=== PATIENT | female | born 1980 | race Caucasian/White ===

== ENCOUNTER 2025-01-07 12:14 | Emergency (ER) | payer OTHER ==
[~2025-01-07] VITALS: Ht 180.3 cm; Wt 67.0 kg
--- NOTE | 2025-01-07 12:33 | ED.PDOC ---
SOB-HPI HPI Comments 44 year old female presents to the ED with chief complaint of SOB. Patient reports that she has had worsening SOB over the past week, calling her PCP regarding the problem. Patient relays that she was prescribed Augmentin and Prednisone, which has not provided any relief. Patient states she was then advised to come to the ED as she had associated symptoms of facial numbness, lip tingling, and eyelid swelling. Patient denies any throat swelling, dizziness, headache, N/V, chest pain, cough, or itchiness. Time Seen by MD: 12:24 Reviewed notes: Nurses Notes, Medications, Allergies Information Source: Patient Mode of Arrival: Ambulatory Severity: Moderate Timing: Hours Duration: Since onset Context: At Rest PE Risk Factors: None History of: Recent Antibiotic, Other (Prednisone) Prehospital treatment: None Modifying Factors: Nothing Associated Signs and Symptoms: None Past Medical History PAST MEDICAL HISTORY: Denies Surgical History: Denies all surgeries EMPLOYEE RELATIONS DIRECTOR History: No Pertinent EMPLOYEE RELATIONS DIRECTOR History Family History Family History: Reviewed,noncontributory to illness Social History Smoker: Non-Smoker Alcohol: Denies ETOH Use Drugs: Denies Drug Use Lives In: Home Constitutional: denies: chills, diaphoresis, fatigue, fever, malaise, sweats, weakness, others EENTM: reports: others (Eyelid swelling); denies: blurred vision, double vision, ear bleeding, ear discharge, ear drainage, ear pain, ear ringing, eye pain, eye redness, hearing loss, mouth pain, mouth swelling, nasal discharge, nose bleeding, nose congestion, nose pain, photophobia, tearing, throat pain, throat swelling, voice changes Respiratory: reports: shortness of breath; denies: cough, hemoptysis, orthopnea, SOB at rest, SOB with excertion, stridor, wheezing, others Cardiovascular: denies: chest pain, dizzy spells, diaphoresis, Dyspnea on exertion, edema, irregular heart beat, left arm pain, lightheadedness, palpitations, PND, syncope, others Gastrointestinal: denies: abdomen distended, abdominal pain, blood streaked bowels, constipated, diarrhea, dysphagia, difficulty swallowing, hematemesis, melena, nausea, poor appetite, poor fluid intake, rectal bleeding, rectal pain, vomiting, others Genitourinary: denies: abnormal vagina bleeding, burning, dyspareunia, dysuria, flank pain, frequency, hematuria, incontinence, pain, , vagina discharge, urgency, others Neurological: reports: numbness, tingling; denies: dizziness, fainting, headache, left sided numbness, left sided weakness, paresthesia, pre-existing deficit, right sided numbness, right sided weakness, seizure, speech problems, tremors, weakness, others Musculoskeletal: denies: back pain, gout, joint pain, joint swelling, muscle pain, muscle stiffness, neck pain, others Integumetry: denies: bruises, change in color, change in hair/nails, dryness, laceration, lesions, lumps, rash, wounds, others Allergic/Immunocompromised: denies: Difficulty Healing, Frequent Infections, Hives, Itching, others Hematologic/Lymphatic: denies: anemia, blood clots, easy bleeding, easy bruising, swollen glands, others Endocrine: denies: excessive hunger, excessive sweating, excessive thirst, excessive urination, flushing, intolerance to cold, intolerance to heat, unexplained weight gain, unexplained weight loss, others Psychiatric: denies: anxiety, bipolar disorder, depression, hopeless, panic disorder, schizophrenia, sleepless, suicidal, others All Other Systems: Reviewed and Negative Physical Exam General Appearance: Moderate Distress, Normal HEENT: Normal ENT Inspection, Pharynx Normal, TMs Normal Neck: Full Range of Motion, Non-Tender, Normal, Normal Inspection Respiratory: Chest Non-Tender, No Accessory Muscle Use, Other (Coarse breath sounds) Cardiovascular: No Edema, No JVD, No Murmur, No Gallop, Normal Peripheral Pulses, Regular Rate/Rhythm Breast Exam: Deferred Gastrointestinal: No Organomegaly, Non Tender, No Pulsatile Mass, Normal Bowel Sounds, Soft Genitalia: Deferred Pelvic: Deferred Rectal: Deferred Extremities: No calf tenderness, Normal capillary refill, Normal inspection, Normal range of motion, Non-tender, No pedal edema Musculoskeletal : Apperance: Normal Neurologic: Alert, application support manager II-XII nml as Tested, No Motor Deficits, Normal Affect, Normal Mood, No Sensory Deficits Cerebellar Function: Normal Reflexes: Normal Skin: Dry, Normal Color, Warm Peripheral Pulses: 3+ Radial (R), 3+ Radial (L) Lymphatic: No Adenopathy Was a procedure done? Was a procedure done?: No Differential Dx Differential Diagnosis: Anxiety, Asthma, Bronchitis, CHF, COPD X-Ray, Labs, Meds, VS Vital Signs Date Time Temp Pulse Resp B/P (MAP) Pulse Ox O2 Delivery O2 Flow Rate FiO2 01/07/25 12:30 98.1 106 16 130/76 (94) 95 98.1 Lab Test 01/07/25 13:04 Range/Units D-Dimer, Quantitative < 0.19 0.0-0.49 mg/L FEU Chest XR: FINDINGS: The cardiac silhouette is unremarkable. The lungs demonstrate bilateral patchy airspace opacities. Bilateral interstitial airspace opacities The pulmonary vasculature is prominent. There is no pleural effusion.. There is no pne umothorax. IMPRESSION: 1. Pulmonary vascular congestion and bilateral patchy airspace opacities. 2. Interstitial airspace opacities which could represent sequela of pulmonary edema, atypical infection, chronic lung changes/disease. Patient alert. Came in because of cough congestion. Vitals stable. Answering questions. Saturation pristine. Respiratory rate within normal limits. Chest x-ray does show pneumonitis. D-dimer within normal limits. No leg swelling. No chest pain. Was given prescription of prednisolone Levaquin antibiotic. Explained to the patient in the lobby. Was told to follow up with his primary care physician. Was told to come back if there is any problem. Time of 1ST Reevaluation: 13:24 Reevaluation 1ST: Unchanged Time of 2ND Reevaluation: 16:14 Reevaluation 2ND: Improved Patient Education/Counseling: Diagnosis, Treatment Family Education/Counseling: No Family Present Additional Information The following tests were ordered, and results were reviewed by me: Chest XR, D- Dimer Additional Information was gathered from interviewing the following independent historians: None I reviewed and agreed with the following test results read by other providers: Chest XR I discussed treatment and results with medical personnel and: patient Comprehensive systems review obtained and negative except for what is stated in the HPI. Departure 1 Departure Time of Disposition: 16:16 Impression: Primary Impression: Pneumonitis Disposition: 01 HOME / SELF CARE / HOMELESS Condition: Good e-Prescriptions Levofloxacin Hemihydrate (LEVOFLOXACIN) 500 Mg Tab 500 MG PO DAILY for 10 Days, #10 MG Prov: KIM BENAVIDEZ MD 01/07/25 Prednisone (Prednisone) 20 Mg Tab 20 MG PO BS for 5 Days, #5 MG Prov: KIM BENAVIDEZ MD 01/07/25 Discharged With: Self Comments Spoke to and examined patient at 1224, discussing treatment plan at this time. Critical Care Note Critical Care Time?: No Stability Stability form required: No Heart Score Heart Score: Heart Score Response (Comments) Value History N/A 0 EKG N/A 0 Age N/A 0 Risk Factors N/A 0 Troponin N/A 0 Total 0 I personally scribed for KIM BENAVIDEZ MD (CARLOS EDUARDO) on 01/07/25 at 12:33. Electronically submitted by Nikos Osuna ([email or web address]). I personally scribed for KIM BENAVIDEZ MD (CARLOS EDUARDO) on 01/07/25 at 13:26. E lectronically submitted by Nikos Osuna ([email or web address]). I personally scribed for KIM BENAVIDEZ MD (CARLOS EDUARDO) on 01/07/25 at 14:40. Electronically submitted by Nikos Osuna ([email or web address]). KIM BENAVIDEZ MD January 07, 2025 12:33
--- NOTE | 2025-01-07 13:02 | DVH ---
CHEST RADIOGRAPH Indication: sob Technique: Single frontal view of the chest was obtained Comparison: None FINDINGS: The cardiac silhouette is unremarkable. The lungs demonstrate bilateral patchy airspace opacities. Bi lateral interstitial airspace opacities The pulmonary vasculature is prominent. There is no pleural e ffusion.. There is no pneumothorax. IMPRESSION: 1. Pulmonary vascular congestion and bilateral patchy airspace opacities. 2. Interstitial airspace opacities which could represent sequela of pulmonary edema, atypical infecti on, chronic lung changes/disease.
[2025-01-07] MEDS ORDERED: PRED20TA2 PO (16:17)
[2025-01-07] MEDS ORDERED: LEVO500T91 PO (16:17)
[2025-01-07 18:11] VITALS: BP 120/76; PULSE 84; RESP 18; TEMP 98.9; O2SAT 96
== END 2025-01-07 18:27 | disposition home or self-care (01) ==
LOC: ER 12:19
DX: J98.4 Other disorders of lung (principal); R06.02 Shortness of breath
CPT/HCPCS: 36415; 71045; 85379